=== PATIENT | male | born 1950 | race Caucasian/White ===

== ENCOUNTER 2017-08-19 13:49 | Emergency (ER) | payer MEDICARE, MEDICAID ==
[2017-08-19] MEDS: DIATR MEGLU/DIATRIZOATE SODIUM 30 ML SOLUTION PO (14:30)
[2017-08-19] MEDS: IOHEXOL 300MG/ML 30 ML BTL (14:44)
== END 2017-08-19 19:40 | disposition home or self-care (01) ==
LOC: E/R 13:49
DX: K94.23 Gastrostomy malfunction (principal); G93.40 Encephalopathy, unspecified
CPT/HCPCS: 43760; 74000; 99285-25